=== PATIENT | female | born 1965 | race Caucasian/White ===

== ENCOUNTER 2021-07-03 06:21 | Emergency (ER) | payer BC ==
[~2021-07-03] VITALS: Ht 170.2 cm; Wt 112.9 kg
[2021-07-03] MEDS ORDERED: ONDANSETRON HCL INJ 2MG/ML 2ML 2 MG/ML VIAL IV STA (06:32)
[2021-07-03] MEDS ORDERED: SODIUM CHLORIDE 0.9% 1000ML 1,000 ML IV STA ×2 (06:32→07:30)
[2021-07-03 07:05] LABS: BASOPHILS # (AUTO) 0.1 (0.0-0.1); BASOPHILS % 0.3 % (0.0-1.0); EOSINOPHILS # (AUTO) 0.1 (0.0-0.4); EOSINOPHILS % 0.4 % (0.0-6.0); HEMATOCRIT 42.8 % (34.2-44.1); HEMOGLOBIN 14.3 g/dL (12.0-16.0); LYMPHOCYTES # (AUTO) 0.4 (1.0-3.2); LYMPHOCYTES % 2.4 % (18.0-39.1); MEAN CORPUSCULAR HEMOGLOBIN 29.9 pg (28-32); MEAN CORPUSCULAR HGB CONC 33.4 g/dL (31-35); MEAN CORPUSCULAR VOLUME 89.5 fL (81-99); MONOCYTES # (AUTO) 0.8 (0.2-0.8); MONOCYTES % 5.4 % (4.4-11.3); NEUTROPHILS # (AUTO) 13.2 (2.1-6.9); NEUTROPHILS % 90.7 % (38.7-80.0); PLATELET COUNT 311 x10e3/uL (140-360); RED BLOOD COUNT 4.78 x10e6/uL (3.6-5.1); RED CELL DISTRIBUTION WIDTH 13.3 % (11.7-14.4)
[2021-07-03 07:12] LABS: CLARITY,URINE CLOUDY (CLEAR); COLOR,URINE YELLOW (YELLOW); LEUKOCYTE ESTERASE ,URINE TRACE (NEGATIVE); NITRITE,URINE NEGATIVE (NEGATIVE); PROTEIN,URINE DIPSTICK 2+ (NEGATIVE)
[2021-07-03 07:13] LABS: KETONES,URINE >=160 (NEGATIVE); URINE UROBILINOGEN 1 mg/dL (0.2 - 1)
[2021-07-03 07:27] LABS: STREPTOCOCCUS GRP A ANTIGEN NEGATIVE (NEGATIVE)
[2021-07-03 07:28] LABS: CREATINE KINASE MB < 1.00 ng/mL (0-4.3)
[2021-07-03 07:29] LABS: ALANINE AMINOTRANSFERASE 23 IU/L (0-55); ALBUMIN 3.3 g/dL (3.5-5.0); ALBUMIN/GLOBULIN RATIO 0.8 (0.8-2.0); ALKALINE PHOSPHATASE 127 IU/L (40-150); ANION GAP 18.9 mmol/L (8-16); BLOOD UREA NITROGEN 14 mg/dL (7-26); BUN/CREATININE RATIO 13 (6-25); CALCIUM 9.7 mg/dL (8.4-10.2); CARBON DIOXIDE 17 mmol/L (22-29); CHLORIDE 105 mmol/L (98-107); CREATINE KINASE 47 IU/L (29-168); CREATININE, SERUM 1.11 mg/dL (0.57-1.11); EST GLOMERULAR FILTRATION RATE 51 ML/MIN (60-); GLUCOSE 107 mg/dL (74-118); MAGNESIUM 1.5 MG/DL (1.3-2.1); SODIUM 138 mmol/L (136-145)
[2021-07-03] MEDS ORDERED: POTASSIUM CHLORIDE 20 MEQ TAB CR PO STA (07:30)
[2021-07-03] MEDS ORDERED: CEFTRIAXONE 1 GM in SODIUM CHLORIDE 0.9% 50ML 50 ML IV ONE (07:30)
[2021-07-03 07:33] LABS: POTASSIUM 2.9 mmol/L (3.5-5.1)
[2021-07-03 07:41] LABS: BACTERIA,URINE MANY /HPF; EPITHELIAL CELLS,URINE MODERATE /LPF; RBC,URINE >50 /HPF (0-5); WBC,URINE (MAN) >50 /HPF (0-5)
[2021-07-03 08:14] LABS: INFLUENZAE A&B ANTIGEN (RAPID) NEGATIVE (NEGATIVE)
[2021-07-03 08:37] LABS: LIPASE 10 U/L (8-78)
[2021-07-03 09:16] VITALS: BP 102/61
== END 2021-07-03 09:20 | disposition home or self-care (01) ==
LOC: ER 06:25
DX: N39.0 Urinary tract infection, site not specified (principal); R10.30 Lower abdominal pain, unspecified; I10 Essential (primary) hypertension; Z98.84 Bariatric surgery status
CPT/HCPCS: 36415; 71045; 74176; 80053; 81001; 82550; 82553; 83518; 83605; 83690; 83735; 84484; 85025; 87040; 87070; 87071; 87086; 87186; 87205; 87400; 99284; J0696; J2405; J7030

== ENCOUNTER → 2022-06-04 | Outpatient (CLI) | payer BC | LOC: RAD 07:21 | PROVIDERS: ATTEND Family Medicine | DX: M25.562 Pain in left knee (principal); M25.561 Pain in right knee; M54.50 Low back pain, unspecified | CPT/HCPCS: 72110 ==

== ENCOUNTER 2022-11-14 06:58 | Outpatient (RCR) | payer BC | END 2022-11-30 | LOC: PT 06:58 | PROVIDERS: ATTEND Specialist | DX: S39.012A Strain of muscle, fascia and tendon of lower back, initial encounter (principal) ==

== ENCOUNTER 2024-11-03 05:43 | Emergency (ER) | payer BC ==
[~2024-11-03] VITALS: Ht 170.2 cm; Wt 138.3 kg
[2024-11-03 06:01] VITALS: PULSE 84; RESP 18; TEMP 98.3
[2024-11-03 06:43] VITALS: BP 134/70; PULSE 76; RESP 17; TEMP 98.2; O2SAT 99
== END 2024-11-03 06:46 | disposition home or self-care (01) ==
LOC: ER 05:54
DX: S20.212A Contusion of left front wall of thorax, initial encounter (principal); W01.198A Fall on same level from slipping, tripping and stumbling with subsequent striking against other object, initial encounter; Y93.01 Activity, walking, marching and hiking; Y92.89 Other specified places as the place of occurrence of the external cause; I10 Essential (primary) hypertension; F32.A Depression, unspecified; Z98.84 Bariatric surgery status
CPT/HCPCS: 99282